=== PATIENT | male | born 1950 | race Caucasian/White ===

== ENCOUNTER 2018-06-05 13:50 | Emergency (ER) | payer OTHER ==
[~2018-06-05] VITALS: Ht 175.3 cm; Wt 104.0 kg
[2018-06-05 13:54] VITALS: Ht 175.3 cm; Wt 104.0 kg
[2018-06-05] MEDS ORDERED: METF100010 PO (16:21)
[2018-06-05] MEDS ORDERED: METO-319 PO (16:21)
[2018-06-05] MEDS ORDERED: LOSA1TAB25 PO (16:22)
[2018-06-05] MEDS ORDERED: SITA100T11 PO (16:22)
[2018-06-05] MEDS ORDERED: GABA300C16 PO (16:22)
[2018-06-05] MEDS ORDERED: GLIM2TAB PO (16:23)
[2018-06-05] MEDS ORDERED: AMLO5TAB4 PO (16:23)
[2018-06-05] MEDS ORDERED: ATOR10TA65 PO (16:23)
[2018-06-05] MEDS ORDERED: INSU300I SQ (16:24)
[2018-06-05] MEDS ORDERED: FUROSEMIDE 40 MG INJ IV ONE (20:00)
--- NOTE | 2018-06-05 20:11 | ERD ---
ER Documentation Chief Complaint Chief Complaint SENT FROM DR LEONE FOR MAURICIO OF CP. (SEE REFERAL) HPI This is a 68-year-old male with a past medical history of hypertension, hyperlipidemia, diabetes, CHF on Lasix who is presenting with a transient episode of shortness of breath and a heaviness in his chest. The patient does not endorse chest pain to me. He reports that he woke up last night feeling short of breath with chest heaviness. The patient reports that his symptoms improved this morning after waking up, but he went to his clinic to be evaluated. The provider requested that the patient come to the emergency depart ment for further assessment. The patient denies any episodes of diaphoresis. He does not feel lightheaded or dizzy. He denies any nausea or vomiting. The patient does endorse a 3-4 days of a nonproductive cough and nasal congestion. He otherwise denies any fever or chills. He denies any myalgias. The patient has had no headache or vision changes. The patient does not endorse neck or back pain. The patient denies abdominal pain. The patient denies changes to bowel movements or urination. The patient has had no focal deficits. The patient has had no weakness or numbness or tingling to the face or extremities. The patient sees his structural steel detailer twice a month. He is due to see him next week. ROS All systems reviewed and are negative except as per history of present illness. Medications Home Meds Reported Medications Insulin Glargine,Hum.rec.anlog (Larry Blood) 300 Unit/1 Ml Insuln.pen, 150 UNIT SQ QHS, EA 06/05/18 Atorvastatin Calcium (Atorvastatin Calcium) 10 Mg Tablet, 10 MG PO QHS, #30 TAB 06/05/18 Amlodipine Besylate* (Norvasc*) 5 Mg Tablet, 5 MG PO DAILY, TAB 06/05/18 Glimepiride* (Glimepiride*) 2 Mg Tablet, 2 MG PO WITH BREAKFAST DINNE, TAB 06/05/18 Sitagliptin* (Januvia*) 100 Mg Tablet, 100 MG PO DAILY, #30 TAB 06/05/18 Gabapentin* (Gabapentin*) 300 Mg Capsule, 300 MG PO DAILY, #60 CAP 06/05/18 Losartan-Hydrochlorothiazide (Losartan-HCTZ) 100-25 Mg Tab, 1 TAB PO DAILY, TAB 1/23/19 Metformin Hcl* (Metformin Hcl*) 1,000 Mg Tablet, 1000 MG PO WITH BREAKFAST DINNE, #60 TAB 06/05/18 Metoprolol Succinate* (Toprol XL*) 50 Mg Tab.er.24h, 50 MG PO DAILY, #30 TAB 06/05/18 Allergies Allergies: Coded Allergies: No Known Allergy (Unverified , 06/05/18) PMhx/Soc History of Surgery: No Anesthesia Reaction: No Hx Neurological Disorder: No Hx Respiratory Disorders: No Hx Cardiac Disorders: Yes (Hypertension, hyperlipidemia, diabetes, CHF) Hx Psychiatric Problems: No Hx Miscellaneous Medical Probl: No Hx Alcohol Use: Yes Hx Substance Use: No Hx Tobacco Use: Yes Smoking Status: Current every day smoker FmHx Family History: diabetes Physical Exam Vitals Vital Signs Date Temp Pulse Resp B/P (MAP) Pulse Ox O2 O2 Flow FiO2 Time Delivery Rate 06/05/18 92 18 158/99 97 Room Air 17:36 (118) 06/05/18 Nasal 2 15:30 Cannula 06/05/18 96 18 159/88 95 Room Air 15:30 (111) 06/05/18 99.7 96 18 166/93 99 13:54 (117) Physical Exam Const: No apparent distress, well-developed, well-nourished Head: Normocephalic, Atraumatic Eyes: Normal Conjunctiva. Extraocular movements intact. Pupils equal, round and reactive to light ENT: Normal External Ears, Nose and Mouth. Neck: Full range of motion. No meningismus. Resp: Bibasilar rales. No wheezes or rhonchi. No increased work of breathing. Cardio: Regular rate and rhythm. No murmurs, rubs or gallops Abd: Soft, non tender, non distended. Normal bowel sounds Skin: No petechiae or rashes Back: No midline tenderness. No CVA tenderness Ext: No cyanosis, or edema Neur: Awake and alert, oriented 4. Cranial nerves intact. No facial droop. Normal strength, sensation and coordination. Psych: Normal Mood and Affect Result Diagram: 06/05/18 1525 06/05/18 1525 Results 24 hrs Laboratory Tests Test 06/05/18 15:25 06/05/18 18:54 White Blood Count 11.4 10^3/ul Red Blood Count 4.51 10^6/ul Hemoglobin 12.9 g/dl Hematocrit 39.1 % Mean Corpuscular Volume 86.7 fl Mean Corpuscular Hemoglobin 28.6 pg Mean Corpuscular Hemoglobin Concent 33.0 g/dl Red Cell Distribution Width 13.9 % Platelet Count 215 10^3/UL Mean Platelet Volume 11.0 fl Immature Granulocytes % 0.500 % Neutrophils % 73.6 % Lymphocytes % 16.5 % Monocytes % 8.4 % Eosinophils % 0.6 % Basophils % 0.4 % Nucleated Red Blood Cells % 0.0 /100WBC Immature Granulocytes # 0.060 10^3/ul Neutrophils # 8.4 10^3/ul Lymphocytes # 1.9 10^3/ul Monocytes # 1.0 10^3/ul Eosinophils # 0.1 10^3/ul Basophils # 0.0 10^3/ul Nucleated Red Blood Cells # 0.0 10^3/ul Sodium Level 137 mmol/L Potassium Level 4.5 mmol/L Chloride Level 97 mmol/L Carbon Dioxide Level 27 mmol/L Anion Gap 13 Blood Urea Nitrogen 15 mg/dl Creatinine 0.74 mg/dl Est Glomerular Filtrat Rate mL/min > 60 mL/min Glucose Level 227 mg/dl Calcium Level 9.6 mg/dl Troponin I 0.035 ng/ml 0.035 ng/ml B-Type Natriuretic Peptide 1760 PG/ML Procedures/MDM MDM The patient's presentation warrants further investigation. Previous medical records, if available, were reviewed. LABS The patient's laboratory testing was obtained and reviewed. No emergent treatment was required unless described below. CBC: Mild leukocytosis without shift, likely reactive. Mild normocytic anemia, not emergent. Normal platelet count. BMP: No E/o severe acidosis or alkalosis or renal failure. Hyperglycemia without diabetic ketoacidosis. Troponin: No E/o acute ischemia x 2 BNP: Elevated with clinical findings concerning for heart failure EKG EKG read by me at 1415: Rate/Rhythm: Regular rate and rhythm at a rate of 94 bpm. Intervals: Normal. Incomplete right bundle branch block. [place]: Normal Impression: Q waves in the inferior leads indicating likely old inferior ischemia. No ST or T wave changes concerning for acute ischemia. EKG read by me at 1745: Rate/Rhythm: Regular rate and rhythm at a rate of 92 bpm. Intervals: Normal. Incomplete right bundle branch block. [place]: Normal Impression: Q waves in the inferior leads indicating likely old inferior ischemia. No ST or T wave changes concerning for acute ischemia. IMAGING Imaging and Radiology interpretation reviewed. CXR FINDINGS: There is mild cardiomegaly. There is mild pulmonary vascular congestion. There are bilateral perihilar and lower lobe increased interstitial changes. There are mild bibasilar atelectatic changes. There is no pneumothorax. IMPRESSION: Mild cardiomegaly with pulmonary vascular congestion. Mild bibasilar atelectatic changes. Calcified aorta consistent with atherosclerotic disease. Electronically viewed and signed by .Hardik Mena MD, on 06/05/2018 15:43 TREATMENT/DISPOSITION The patient presents with shortness of breath. His BNP is elevated and there a re clinical and radiographic findings of heart failure. The patient currently notes that his symptoms have resolved, but I am concerned about his findings of heart failure. I offered admission to the patient. Shared decision making was enacted. The risks and benefits of admission versus discharge were discussed with the patient, and the patient preferred discharge. He understands that his symptoms could get worse, but as he feels much improved, he would like to follow-up with his structural steel detailer in an outpatient setting. The patient will be given a dose of Lasix in the emergency department. The patient reports that he takes Lasix at home. He was instructed to continue using this as prescribed. The patient understands the importance of calling his structural steel detailer tomorrow to discuss the events of today. I recommend that he be seen in the next 2-3 days. The patient's troponin and EKG are reassuring. I have low suspicion for acute coronary syndrome. The patient did not endorse any chest pain to me. The patient's chest xray does not reveal pneumonia or pneumothorax or pleural effusions. She does not have a widened mediastinum and does not have signs or symptoms concerning for thoracic aortic aneurysm or dissection. The patient does not have pneumomediastinum or signs concerning for esophageal tear or rupture. The patient has no clinical or radiographic signs of pericardial effusion or tamponade. The patient does not have pneumoperitoneum and I have decreased suspicion of viscus perforation as possible referred pain. The patient does not have a diagnosis of COPD and is not wheezing today. The patient is not tachypneic or hypoxic. The patient is breathing comfortably and without pleuritic pain. The patient is not on hormonal therapy. The patient has no history of clotting or bleeding disorders. The patient has no calf tenderness. The patient has had no hemoptysis. I have decreased suspicion for PE. Upon reevaluation of the patient, symptoms have improved. No emergent diagnoses were identified. At this time, I feel that the patient stable for discharge. The patient was instructed to follow-up with a primary care physician in 1-3 days. The patient will be given strict precautions with which to return to the emergency department. Prescriptions: None The patient's blood pressure was elevated at greater than 120/80 while in the emergency department. The patient was otherwise stable with no evidence of hypertensive urgency or emergency. The patient does not require admission for blood pressure control. I have discussed with the patient the risks of hypertension. I have instructed the patient to return to the ER for any new or worsening symptoms including chest pain, shortness of breath, headache, blurred vision, confusion, nausea, vomiting or LOC. I have advised the patient to follow up with the primary care physician for outpatient monitoring and treatment for hypertension in 1-3 days. Disclaimer: Inadvertent spelling and grammatical errors are likely due to EHR/dictation software use and do not reflect on the overall quality of patient care. Note that the electronic time recorded on this note does not necessarily reflect the actual time of the patient encounter. Departure Diagnosis: Primary Impression: CHF (congestive heart failure) Heart failure type: unspecified Heart failure chronicity: acute on chronic Qualified Codes: I50.9 - Heart failure, unspecified Additional Impressions: Shortness of breath Pulmonary edema Chronicity: acute Qualified Codes: J81.0 - Acute pulmonary edema Elevated brain natriuretic peptide (BNP) level Hyperglycemia Leukocytosis Leukocytosis type: unspecified Qualified Codes: D72.829 - Elevated white blood cell count, unspecified Normocytic anemia Condition: Stable VIN HUANG MD Jun 05, 2018 20:09
[2018-06-05 20:21] VITALS: BP 135/92; PULSE 92; RESP 18
== END 2018-06-05 20:28 | disposition home or self-care (01) ==
LOC: E/R 13:50
DX: I11.0 Hypertensive heart disease with heart failure (principal); I50.9 Heart failure, unspecified; J81.0 Acute pulmonary edema; E11.65 Type 2 diabetes mellitus with hyperglycemia; D72.829 Elevated white blood cell count, unspecified; R79.89 Other specified abnormal findings of blood chemistry; F17.210 Nicotine dependence, cigarettes, uncomplicated; Z79.4 Long term (current) use of insulin
CPT/HCPCS: 36415; 71045; 80048; 83880; 84484; 85025; 93005; 96374; 99285; J1940

== ENCOUNTER 2018-09-13 08:00 | Day surgery (SDC) | payer OTHER ==
[2018-09-13] VITALS (8 sets, daily range): BP systolic 123–140; BP diastolic 88–98; PULSE 71–93; RESP 12–18; Ht 177.8 cm; Wt 101.7 kg
[~2018-09-13] VITALS: Ht 177.8 cm; Wt 101.7 kg
[~2018-09-13 08:00] MED LIST: AMLO5TAB4 PO; ATOR10TA65 PO; GABA300C16 PO; GLIM2TAB PO; INSU300I SQ; LOSA1TAB25 PO; METF100010 PO; METO-319 PO; SITA100T11 PO
[2018-09-13] MEDS ORDERED: AMIO200T4 PO (08:55)
[2018-09-13] MEDS ORDERED: INSU300I SQ (08:56)
[2018-09-13] MEDS ORDERED: LOSA100T15 PO (08:57)
[2018-09-13] MEDS ORDERED: FURO20TA3 PO (08:57)
[2018-09-13] MEDS ORDERED: POTA10TA37 PO (08:57)
[2018-09-13] MEDS ORDERED: METO-336 PO (08:58)
[2018-09-13] MEDS ORDERED: APIX5TAB PO (08:58)
[2018-09-13] MEDS ORDERED: FENTAnyl 50 MCG/ML VIAL ONE (09:36)
[2018-09-13] MEDS ORDERED: MIDAZOLAM 1 MG/ML 2 ML INJ ONE (09:36)
[2018-09-13] MEDS ORDERED: PROPOFOL 20 ML ONE (09:36)
--- NOTE | 2018-09-13 09:39 | PREAC ---
Date/Time of Note Date/Time of Note DATE: 09/13/18 TIME: 09:38 Anesthesia Eval and Record Evaluation Time Pre-Procedure Interview DATE: 09/13/18 TIME: 09:38 Age 68 Sex male NPO: 8 hrs Preoperative diagnosis Afib Planned procedure cardioversion Past Medical History Past Medical History: Includes Cardio: HTN, Arrythmia Endo: Diabetes GI: Obesity Surgery & Anesthesia Issues No known issue Meds Anticoagulation: No Beta [place] within 24 hr: No Reason Beta Destin not given: Pt. not on B-[place] Reported Medications Metoprolol Succinate* (Toprol XL*) 100 Mg Tab.sr.24h, 100 MG PO DAILY, #30 TAB 09/13/18 Apixaban* (Eliquis*) 5 Mg Tablet, 5 MG PO BID, TAB 09/13/18 Losartan Potassium* (Losartan Potassium*) 100 Mg Tablet, 100 MG PO DAILY, TAB 09/13/18 Furosemide* (Furosemide*) 20 Mg Tablet, 20 MG PO DAILY, #60 TAB 09/13/18 Potassium Chloride* (K-Dur*) 10 Meq Tab.prt.sr, 10 MEQ PO DAILY, TAB 09/13/18 Insulin Glargine,Hum.rec.anlog (Toujeo Solostjanna) 300 Unit/1 Ml Insuln.pen, 15 UNIT SQ QHS, EA 09/13/18 Amiodarone Hcl* (Amiodarone Hcl*) 200 Mg Tablet, 200 MG PO DAILY, #30 TAB 09/13/18 Amlodipine Besylate* (Norvasc*) 5 Mg Tablet, 5 MG PO DAILY, TAB 06/05/18 Glimepiride* (Glimepiride*) 2 Mg Tablet, 2 MG PO WITH BREAKFAST DINNE, TAB 06/05/18 Metformin Hcl* (Metformin Hcl*) 1,000 Mg Tablet, 1000 MG PO WITH BREAKFAST DINNE, #60 TAB 06/05/18 Discontinued Reported Medications Insulin Glargine,Hum.rec.anlog (Toujeo Solostar) 300 Unit/1 Ml Insuln.pen, 150 UNIT SQ QHS, EA 06/05/18 Atorvastatin Calcium (Atorvastatin Calcium) 10 Mg Tablet, 10 MG PO QHS, #30 TAB 06/05/18 Sitagliptin* (Januvia*) 100 Mg Tablet, 100 MG PO DAILY, #30 TAB 06/05/18 Gabapentin* (Gabapentin*) 300 Mg Capsule, 300 MG PO DAILY, #60 CAP 06/05/18 Losartan-Hydrochlorothiazide (Losartan-HCTZ) 100-25 Mg Tab, 1 TAB PO DAILY, TAB 06/05/18 Metoprolol Succinate* (Toprol XL*) 50 Mg Tab.er.24h, 50 MG PO DAILY, #30 TAB 06/05/18 Meds reviewed: Yes Allergies Coded Allergies: No Known Allergy (Unverified , 09/13/18) Allergies Reviewed: Yes Labs/Studies Labs Reviewed: Reviewed by anesthesiologist Result Diagram: 09/13/18 0855 09/13/18 0855 Laboratory Tests 09/13/18 08:55 test: N/A Studies: ECG (afib), CXR (cardiomegally) Pre-procedure Exam Last vitals Vital Signs Date Temp Pulse Resp B/P (MAP) Pulse Ox O2 O2 Flow FiO2 Time Delivery Rate 09/13/18 97.2 71 16 133/95 97 Room Air 09:05 (108) Airway: Adequate mouth opening Mallampati: Mallampati I Teeth: Normal Lung: Normal Heart: Normal ASA Physical Status ASA physical status: 2 Emergency: None Planned Anesthetic General/MAC: MAC, TIVA Planned Pain Management Parenteral pain med Pre-operative Attestations Prior to commencing anesthesia and surgery, the patient was re-evaluated, there was verification of: *The patient's identity *The results of appropriate recent lab work and preoperative vital signs *The above evaluation not changing prior to induction *Anesthetic plan, risk benefits, alternative and complications discussed with patient/family; questions answered; patient/family understands, accepts and wishes to proceed. SHERRI MENDENHALL MD September 13, 2018 09:39
--- NOTE | 2018-09-13 10:13 | PDOCDIS ---
Discharge Instructions CONDITION [id number] Patient Condition: [id number] Good HOME CARE INSTRUCTIONS: [id number] Diet Instructions: [id number] Low Fat /Cholesterol ACTIVITY: [id number] Activity Restrictions: [id number] Slowly Increase Activity Do not Drive (x 1 day) Landry Bobo DO September 13, 2018 10:13
--- NOTE | 2018-09-13 10:15 | OPR ---
Date/Time of Note Date/Time of Note DATE: 09/13/18 TIME: 10:14 Operative Report Procedure Date: September 13, 2018 Preoperative Diagnosis Atrial fibrillation Postoperative Diagnosis Successful Cardioversion-Sinus Operation/Procedure Performed Direct Cardioversion Surgeon see signature line [employer] Radar Operator none Anesthesia Type: MAC Estimated Blood Loss: none Transfusion none Specimen none Grafts/Implants none Complications none Pt Condition Post Procedure: stable Procedure Description After informed consent, patient sedated by anesthesia. Synchronized direct cardioversion at 200J, successful to sinus. No immediate complications Landry Bobo DO September 13, 2018 10:15
--- NOTE | 2018-09-13 23:11 | PAC ---
Date/Time of Note Date/Time of Note DATE: 09/13/18 TIME: 23:11 Post-Anesthesia Notes Post-Anesthesia Note Last documented vital signs Vital Signs Date Temp Pulse Resp B/P (MAP) Pulse Ox O2 O2 Flow FiO2 Time Delivery Rate 09/13/18 97.8 91 14 138/94 93 Room Air 11:10 (109) 09/13/18 2.0 10:24 Activity: WNL Respiratory function: WNL Cardiovascular function: WNL Mental status: Baseline Pain reasonably controlled: Yes Hydration appropriate: Yes Nausea/Vomiting absent: No SHERRI MENDENHALL MD September 13, 2018 23:11
--- NOTE | 2018-09-14 08:02 | PAC ---
Date/Time of Note Date/Time of Note DATE: 09/14/18 TIME: 08:02 Post-Anesthesia Notes Post-Anesthesia Note Last documented vital signs Vital Signs Date Temp Pulse Resp B/P (MAP) Pulse Ox O2 O2 Flow FiO2 Time Delivery Rate 09/13/18 97.8 91 14 138/94 93 Room Air 11:10 (109) 09/13/18 2.0 10:24 Activity: WNL Respiratory function: WNL Cardiovascular function: WNL Mental status: Baseline Pain reasonably controlled: Yes Hydration appropriate: Yes Nausea/Vomiting absent: No SHERRI EMNDENHALL MD September 14, 2018 08:02
--- NOTE | 2018-09-16 09:35 | RADRPT ---
Vent Rate: 88 bpm RR Interval: 684 msec LA Interval: 212 msec QRS Duration: 121 msec QT Interval: 424 msec QTC Interval: 513 msec P-R-T [place]: 34 - 254 - 18 degrees Sinus rhythm...normal P axis, V-rate 50- 99 First degree AV Block Left atrial enlargement...P, P'>60mS, <-0.15mV V1 Right bundle branch block...QRSd>120, terminal axis(90,270) Anterolateral infarct, old...Q>40mS, abnrm ST-T, V3-V6,I,aVL Prolonged QT interval...QTc >500mS Electronically Signed By: Giovany Thrasher
--- NOTE | 2018-09-16 09:36 | RADRPT ---
Vent Rate: 117 bpm RR Interval: 535 msec [place] Interval: [id number] msec QRS Duration: 151 msec QT Interval: 390 msec QTC Interval: 533 msec P-R-T [place]: [id number] - -79 - 29 degrees Atrial fibrillation...V-rate 94-143, irreg A-activity Ventricular premature complex...V complex w/ short R-R interval Right bundle branch block...QRSd>120, terminal axis(90,270) Anterolateral infarct, age indeterminate...Q >35mS, flat/neg T, V3-V6,I,aVL Electronically Signed By: Giovany Thrasher
== END 2018-09-13 11:30 | disposition home or self-care (01) ==
LOC: SDS 08:00 → CCL 08:00
PROVIDERS: ATTEND Internal Medicine Cardiovascular Disease
DX: I48.91 Unspecified atrial fibrillation (principal); I11.0 Hypertensive heart disease with heart failure; I50.9 Heart failure, unspecified; I42.9 Cardiomyopathy, unspecified; Z79.84 Long term (current) use of oral hypoglycemic drugs
CPT/HCPCS: 80048; 82962; 85025; 85610; 85730; 92960; 93005; J3010; J2250